=== PATIENT | female | born 1995 | race Caucasian/White ===

== ENCOUNTER 2016-09-14 02:03 | Emergency (ER) | payer OTHER ==
[~2016-09-14] VITALS: Ht 167.6 cm; Wt 54.5 kg
[~2016-09-14 02:03] MED LIST: AMOXICILLIN/CLA1 TA1 PO; BIRTH CONTROL; BUSPAR DIVIDOSE15 MG PO; BUSPAR10 MG; CEFTIN250 M1 PO; CEPHALEXIN500 M1 PO; CIPRO 500MG TA500 MG PO; DEPO-PROVER150 MG/M1 IM; DESYREL; FISH OIL1 POW; IMPLANON68 MG; LAMICTAL; LAMICTAL 100MG100 MG PO; LAMOTRIGINE; MONONESSA 35 MC1 TA1 PO; NO HOME MEDICATIONS; PREDNISONE20 MG PO; PRENATAL1 TA1 PO; PYRIDIUM200 M1 PO; RISPERDAL 2M2 MG/TAB PO; ZIPRASIDONE; ZOFRAN8 MG PO; ZOLOFT
[2016-09-14 02:04] VITALS: TEMP 97
[2016-09-14 03:18] VITALS: BP 71/53; PULSE 71
== END 2016-09-14 03:18 | disposition home or self-care (01) ==
LOC: COL.ER 02:03
DX: F10.120 Alcohol abuse with intoxication, uncomplicated (principal); Y90.7 Blood alcohol level of 200-239 mg/100 ml
CPT/HCPCS: J2405; J7030